=== PATIENT | female | born 1940 | race African-American/Black ===

== ENCOUNTER → 2017-05-07 | Outpatient (CLI) | payer MEDICARE, OTHER ==
[~2017-05-07] MED LIST: ALPR1TAB7 PO; AML5T PO; CHLO25TA34 PO; COLCPOW2 PO; GABA-497 PO; HYDR25TA4 PO; LANS30CA63 PO; LISI-646 PO; MECL-87 PO; METF-489 PO; MULTTAB99 PO; NORT25CA PO; POT10T PO; RIV20T PO; TEMA30CA PO
[2017-05-07 12:45] LABS: Basophils # (auto) 0 uL; DEFINITIVE VIEW TRANSMISSION; Eosinophils # (auto) 0 uL; Eosinophils % (auto) 0.2 % (0.0-7.0); Hematocrit 31.3 % (36.0-46.0); Hemoglobin 10.1 g/dL (12.2-16.2); Lymphocytes # (auto) 0.6 uL; Lymphocytes % (auto) 9.2 % (10.0-50.0); Mean Corpuscular Hemoglobin 27.1 pg (28.0-32.0); Mean Corpuscular Hgb Conc. 32.5 g/dL (32.0-36.0); Mean Corpuscular Volume 83.6 fL (80.0-100.0); Mean Platelet Volume 8.4 fL (7.4-10.4); Monocytes # (auto) 0.2 uL; Monocytes % (auto) 2.8 % (0.0-12.0); Neutrophils # (auto) 5.6 uL; Neutrophils % (auto) 87.8 % (37.0-80.0); Platelet Count (auto) 294 10^3/uL (140-450); White Blood Cell 6.4 10^3/uL (4.4-10.8)
[2017-05-07 13:06] LABS: Red Cell Distribution Width 21.2 % (11.6-16.0)
[2017-05-07 13:50] LABS: INR 0.95 (0.9-1.15); Prothrombin Time 10.3 sec (9.37-12.3)
[2017-05-07 13:59] LABS: Albumin 3.1 g/dL (3.4-5.0); BUN/Creatinine Ratio 16.3; Bilirubin, Total 0.2 mg/dL (0.2-1.0); Calcium 9.7 mg/dL (8.5-10.1); Potassium 4.6 mmol/L (3.5-5.1); Total Protein 7.1 g/dL (6.4-8.2)
[2017-05-07 15:13] LABS: Platelet Estimate Adequate
[2017-05-07 15:14] LABS: Anisocytosis Slight; Ovalocytes FEW; Stomatocytes Few
== END | disposition home or self-care (01) ==
LOC: LAB 12:00
PROVIDERS: ATTEND Internal Medicine
DX: D64.9 Anemia, unspecified (principal); C20 Malignant neoplasm of rectum; E11.9 Type 2 diabetes mellitus without complications
CPT/HCPCS: 36415; 80053; 82378; 82607; 83036; 83615; 85025; 85610

== ENCOUNTER 2017-05-30 11:55 | Emergency (ER) | payer MEDICARE, OTHER ==
[~2017-05-30] VITALS: Ht 160 cm; Wt 100.7 kg
[2017-05-30 13:01] LABS: Basophils # (auto) 0 uL; Basophils % (auto) 0.3 % (0.0-2.0); CONDITION Y; DEFINITIVE SEE PRINTOUT; Eosinophils # (auto) 0 uL; Hematocrit 34.6 % (36.0-46.0); Hemoglobin 10.9 g/dL (12.2-16.2); Lymphocytes # (auto) 0.6 uL; Lymphocytes % (auto) 8.1 % (10.0-50.0); Mean Corpuscular Hemoglobin 27.4 pg (28.0-32.0); Mean Corpuscular Hgb Conc. 31.6 g/dL (32.0-36.0); Mean Corpuscular Volume 86.7 fL (80.0-100.0); Mean Platelet Volume 8.4 fL (7.4-10.4); Monocytes # (auto) 0.3 uL; Monocytes % (auto) 4.2 % (0.0-12.0); Neutrophils % (auto) 87.4 % (37.0-80.0); Platelet Count (auto) 320 10^3/uL (140-450)
[2017-05-30 13:03] LABS: Red Cell Distribution Width 21.5 % (11.6-16.0)
[2017-05-30 13:27] LABS: Albumin 3.1 g/dL (3.4-5.0); Alkaline Phosphatase 130 U/L (45-117); Anion Gap 8 (5-15); Aspartate Aminotransferase 17 U/L (15-37); BUN/Creatinine Ratio 19.1; Bilirubin, Total 0.1 mg/dL (0.2-1.0); Blood Urea Nitrogen 27 mg/dL (7-18); Calcium 8.7 mg/dL (8.5-10.1); Carbon Dioxide 21 mmol/L (21-32); Chloride 111 mmol/L (98-107); GFR African American 46 mL/min; GFR Non-African American 38 mL/min; Glucose 87 mg/dL (74-106); Magnesium 2.5 mg/dL (1.6-2.6); Potassium 4.6 mmol/L (3.5-5.1); Sodium 140 mmol/L (136-145); Total Protein 7.6 g/dL (6.4-8.2)
[2017-05-30 13:51] LABS: Platelet Estimate Adequate
[2017-05-30 13:55] LABS: Anisocytosis Moderate
[2017-05-30 13:57] LABS: Ovalocytes FEW
[2017-05-30] MEDS ORDERED: LABETALOL HCL 5 MG/ML 4ML SYRINGE IV ONE (17:15)
[2017-05-30 17:16] LABS: Allen Test Yes; Base Excess -0.6 mmol/L (-2.0-2.0); Blood 02Sat 97.6 % (96-100); Blood COHb 0.7 % (0.5-1.5); Blood MetHb 0.3 % (0.0-1.5); HHb 2.4 % (0.0-5.0); MODE NASAL CANNULA; O2Hb 96.6 % (94.0-97.0); PCO2 39.1 mmHg (35.0-45.0); PCO2(T) 39.1 mmHg (35.0-45.0); PO2 130.6 mmHg (80.0-100.0); PO2(T) 130.6 mmHg (80.0-100.0); Sample Type Arterial; pH 7.406 (7.350-7.450)
[2017-05-30 18:36] VITALS: BP 128/79
== END 2017-05-30 19:20 | disposition home or self-care (01) ==
LOC: EDBD 11:55 → ER 11:55
DX: E11.21 Type 2 diabetes mellitus with diabetic nephropathy (principal); J70.5 Respiratory conditions due to smoke inhalation; D50.9 Iron deficiency anemia, unspecified; E46 Unspecified protein-calorie malnutrition; E66.9 Obesity, unspecified; M10.9 Gout, unspecified; I10 Essential (primary) hypertension; J45.909 Unspecified asthma, uncomplicated; Z68.39 Body mass index [BMI] 39.0-39.9, adult
CPT/HCPCS: 36415; 36600; 71020; 80053; 82805; 83735; 84484; 85025; 93005; J3490

== ENCOUNTER → 2017-10-03 | Outpatient (CLI) | payer MEDICARE, OTHER ==
[2017-10-03 12:56] LABS: Basophils # (auto) 0.1 uL; Basophils % (auto) 0.9 % (0.0-2.0); Eosinophils # (auto) 0 uL; Eosinophils % (auto) 0.5 % (0.0-7.0); Hematocrit 35.3 % (36.0-46.0); Hemoglobin 11.6 g/dL (12.2-16.2); Lymphocytes # (auto) 1.5 uL; Lymphocytes % (auto) 25.9 % (10.0-50.0); Mean Corpuscular Hemoglobin 30.1 pg (28.0-32.0); Mean Corpuscular Volume 91.2 fL (80.0-100.0); Monocytes # (auto) 0.6 uL; Neutrophils # (auto) 3.6 uL; Neutrophils % (auto) 62.7 % (37.0-80.0); Platelet Count (auto) 309 10^3/uL (140-450); Red Blood Cells 3.87 10^6/uL (4.0-5.20); Red Cell Distribution Width 16.7 % (11.8-14.3); White Blood Cell 5.7 10^3/uL (4.4-10.8)
[2017-10-03 15:12] LABS: Albumin 3.3 g/dL (3.4-5.0); BUN/Creatinine Ratio 19.6; Bilirubin, Total 0.2 mg/dL (0.2-1.0); CRP High Sensitivity 3.2 mg/dL (< 0.3); Calcium 9.4 mg/dL (8.5-10.1); Potassium 3.9 mmol/L (3.5-5.1)
[2017-10-03 15:13] LABS: Carcinoembryonic Antigen 1.53 ng/mL (<5.0 OR =)
== END | disposition home or self-care (01) ==
LOC: LAB 12:00
PROVIDERS: ATTEND Internal Medicine
DX: C20 Malignant neoplasm of rectum (principal); I10 Essential (primary) hypertension; I70.0 Atherosclerosis of aorta; M06.9 Rheumatoid arthritis, unspecified; D64.9 Anemia, unspecified; E78.00 Pure hypercholesterolemia, unspecified; Z79.899 Other long term (current) drug therapy
CPT/HCPCS: 36415; 80053; 82378; 82607; 83615; 85025; 85652; 86141

== ENCOUNTER → 2018-10-01 | Outpatient (CLI) | payer MEDICARE, OTHER ==
[~2018-10-01] VITALS: Ht 160 cm; Wt 98.0 kg
[~2018-10-01] MED LIST changes: +ADENOSINE 82 MG in GIVE UN-DILUTED 0 ML IV ONE; -GABA-497 PO; +GABA300C10 PO
[2018-10-01 09:50] VITALS: BP 114/62
== END | disposition home or self-care (01) ==
LOC: XY 08:17
PROVIDERS: ATTEND Internal Medicine Cardiovascular Disease
DX: R07.89 Other chest pain (principal)
CPT/HCPCS: 78452; 93017; A9500; J0153

== ENCOUNTER → 2018-10-07 | Outpatient (CLI) | payer MEDICARE, OTHER ==
[~2018-10-07] MED LIST changes: -ADENOSINE 82 MG in GIVE UN-DILUTED 0 ML IV ONE
[2018-10-07 15:19] LABS: Basophils # (auto) 0 uL; Basophils % (auto) 0.3 % (0.0-2.0); Eosinophils # (auto) 0 uL; Eosinophils % (auto) 0.6 % (0.0-7.0); Hematocrit 34.3 % (36.0-46.0); Lymphocytes # (auto) 1.1 uL; Lymphocytes % (auto) 24.1 % (10.0-50.0); Mean Corpuscular Hemoglobin 31.8 pg (28.0-32.0); Mean Corpuscular Hgb Conc. 32.2 g/dL (32.0-36.0); Monocytes # (auto) 0.5 uL; Monocytes % (auto) 10.2 % (0.0-12.0); Neutrophils % (auto) 64.8 % (37.0-80.0); Nucleated Red Blood Cells % 0.2 %; Platelet Count (auto) 233 10^3/uL (140-450); Red Blood Cells 3.47 10^6/uL (4.0-5.20); Red Cell Distribution Width 15.3 % (11.8-14.3); White Blood Cell 4.7 10^3/uL (4.4-10.8)
[2018-10-07 15:33] LABS: % Iron Saturation 13.7 % (15-50)
[2018-10-07 15:35] LABS: Albumin 3.1 g/dL (3.4-5.0); Calcium 9.3 mg/dL (8.5-10.1); Potassium 4.8 mmol/L (3.5-5.1)
[2018-10-07 15:38] LABS: BUN/Creatinine Ratio 13.8; Bilirubin, Total 0.3 mg/dL (0.2-1.0); Total Protein 7.6 g/dL (6.4-8.2)
== END | disposition home or self-care (01) ==
LOC: LAB 14:07
PROVIDERS: ATTEND Internal Medicine
DX: C20 Malignant neoplasm of rectum (principal); D64.9 Anemia, unspecified
CPT/HCPCS: 36415; 80053; 82607; 83540; 83550; 83615; 85025

== ENCOUNTER 2019-07-25 10:21 | Emergency (ER) | payer MEDICARE, OTHER ==
[~2019-07-25] VITALS: Ht 160 cm; Wt 90.7 kg
[~2019-07-25 10:21] MED LIST changes: +LANS30CA57 PO; -LANS30CA63 PO; +TRAZ100T2 PO
[2019-07-25 10:53] VITALS: BP 112/61
[2019-07-25] MEDS ORDERED: IPRATROPIUM BROM 0.5 MG/2.5ML INH SOL NEB ONE (12:15)
[2019-07-25] MEDS ORDERED: ALBUTEROL SULF 2.5 MG/0.5ML(0.5%) NEB SOLN NEB ONE (12:15)
[2019-07-25] MEDS ORDERED: methylPREDNISolone SOD SUCC 125 MG/2 ML VL IM ONE (12:15)
== END 2019-07-25 13:23 | disposition home or self-care (01) ==
LOC: ER 10:21
DX: J06.9 Acute upper respiratory infection, unspecified (principal); E11.9 Type 2 diabetes mellitus without complications; I10 Essential (primary) hypertension; Z90.710 Acquired absence of both cervix and uterus
CPT/HCPCS: 71046; 93005; 94640; 96372; 99283; J2930; J7611; J7644

== ENCOUNTER 2019-10-06 08:39 | Day surgery (SDC) | payer MEDICARE, OTHER ==
[2019-10-02 12:09] LABS: Urine WBC None Seen /hpf (0 - 5)
[2019-10-02 12:26] LABS: Urine Bacteria FEW /hpf (None Seen); Urine Blood Negative /uL (Negative); Urine Mucus FEW (None Seen); Urine Specific Gravity 1.016 (1.001-1.035)
[2019-10-02 12:30] LABS: Basophils # (auto) 0 uL; Basophils % (auto) 0.9 % (0.0-2.0); Eosinophils # (auto) 0 uL; Eosinophils % (auto) 0.7 % (0.0-7.0); Hematocrit 34.3 % (36.0-46.0); Hemoglobin 11.3 g/dL (12.2-16.2); Lymphocytes # (auto) 1.2 uL; Lymphocytes % (auto) 33.6 % (10.0-50.0); Mean Corpuscular Hemoglobin 31.8 pg (28.0-32.0); Mean Corpuscular Hgb Conc. 32.9 g/dL (32.0-36.0); Mean Corpuscular Volume 96.8 fL (80.0-100.0); Monocytes # (auto) 0.3 uL; Monocytes % (auto) 8.4 % (0.0-12.0); Neutrophils # (auto) 1.9 uL; Neutrophils % (auto) 56.4 % (37.0-80.0); Nucleated Red Blood Cells % 0.1 %; Platelet Count (auto) 263 10^3/uL (140-450); Red Blood Cells 3.55 10^6/uL (4.0-5.20); Red Cell Distribution Width 15.8 % (11.8-14.3); White Blood Cell 3.5 10^3/uL (4.4-10.8)
[2019-10-02 12:35] LABS: INR 0.94 (0.9-1.15); Partial Thromboplastin Time 27.1 sec (23.64-32.05)
[2019-10-02 13:05] LABS: Albumin 3.1 g/dL (3.4-5.0); BUN/Creatinine Ratio 10.2; Calcium 9.2 mg/dL (8.5-10.1); Potassium 4.1 mmol/L (3.5-5.1)
[2019-10-02 13:07] LABS: Bilirubin, Total 0.4 mg/dL (0.2-1.0)
[~2019-10-06] VITALS: Ht 160 cm; Wt 83.9 kg
[~2019-10-06 08:39] MED LIST changes: +ALBUAER3 IN; +ALEN1TAB32 PO; -ALPR1TAB7 PO; +BACL10TA PO; +CETI10CA5 PO; -CHLO25TA34 PO; -COLCPOW2 PO; +DULO60CA PO; +FOLI1TAB6 PO; -GABA300C10 PO; -LANS30CA57 PO; +METH2.5T3 PO; -MULTTAB99 PO; -NORT25CA PO; +OMEP20TA PO; +ONDA-144 PO; -POT10T PO; +SUCR1TAB PO; -TEMA30CA PO; -TRAZ100T2 PO
[2019-10-06] MEDS ORDERED: ONDANSETRON HCL 4 MG/2 ML VIAL ONE (10:26)
[2019-10-06] MEDS ORDERED: MIDAZOLAM HCL 1MG/1ML-2 ML VIAL ONE (10:26)
[2019-10-06] MEDS ORDERED: PROPOFOL 10 MG/ML 20 ML IV ONE (10:26)
[2019-10-06] MEDS ORDERED: fentaNYL CITRATE 100 MCG/2 ML VL ONE (10:26)
[2019-10-06] MEDS ORDERED: SODIUM CHLORIDE LOCK 10 ML ONE (10:26)
[2019-10-06] MEDS ORDERED: fentaNYL CITRATE 100 MCG/2 ML VL IV PRN (11:00)
[2019-10-06] MEDS ORDERED: METOCLOPRAMIDE HCL 5MG/ml INJ 2ml VIAL IV PRN (11:00)
[2019-10-06 12:09] VITALS: BP 109/56
== END 2019-10-06 12:21 | disposition home or self-care (01) ==
LOC: GI 08:39
PROVIDERS: ATTEND Internal Medicine Gastroenterology
DX: Z12.11 Encounter for screening for malignant neoplasm of colon (principal); D12.0 Benign neoplasm of cecum; D12.3 Benign neoplasm of transverse colon; D12.4 Benign neoplasm of descending colon; K52.89 Other specified noninfective gastroenteritis and colitis; K64.8 Other hemorrhoids; E11.22 Type 2 diabetes mellitus with diabetic chronic kidney disease; I12.9 Hypertensive chronic kidney disease with stage 1 through stage 4 chronic kidney disease, or unspecified chronic kidney disease; N18.3 Chronic kidney disease, stage 3 (moderate); E66.9 Obesity, unspecified; J44.9 Chronic obstructive pulmonary disease, unspecified; K21.9 Gastro-esophageal reflux disease without esophagitis; I20.9 Angina pectoris, unspecified; D64.9 Anemia, unspecified; F32.9 Major depressive disorder, single episode, unspecified; E11.40 Type 2 diabetes mellitus with diabetic neuropathy, unspecified; Z68.32 Body mass index [BMI] 32.0-32.9, adult; Z86.718 Personal history of other venous thrombosis and embolism; Z90.49 Acquired absence of other specified parts of digestive tract; Z85.048 Personal history of other malignant neoplasm of rectum, rectosigmoid junction, and anus; Z88.5 Allergy status to narcotic agent; Z88.0 Allergy status to penicillin; Z79.899 Other long term (current) drug therapy; Z79.84 Long term (current) use of oral hypoglycemic drugs
CPT/HCPCS: 36415; 43239; 45380; 80053; 81001; 82962; 85025; 85610; 85730; 88305; 93005; J2250; J2405; J2704; J3010; J7030

== ENCOUNTER → 2020-01-08 | Outpatient (CLI) | payer MEDICARE, OTHER ==
[2020-01-08 15:30] LABS: Basophils # (auto) 0 uL; Basophils % (auto) 0.4 % (0.0-2.0); Eosinophils # (auto) 0 uL; Eosinophils % (auto) 0.6 % (0.0-7.0); Hematocrit 33.7 % (36.0-46.0); Lymphocytes # (auto) 1.5 uL; Mean Corpuscular Hemoglobin 30.4 pg (28.0-32.0); Mean Corpuscular Hgb Conc. 32.7 g/dL (32.0-36.0); Monocytes # (auto) 0.3 uL; Monocytes % (auto) 7.2 % (0.0-12.0); Neutrophils % (auto) 52.8 % (37.0-80.0); Platelet Count (auto) 267 10^3/uL (140-450); Red Blood Cells 3.63 10^6/uL (4.0-5.20); Red Cell Distribution Width 14.8 % (11.8-14.3); White Blood Cell 3.8 10^3/uL (4.4-10.8)
[2020-01-08 16:08] LABS: Calcium 9.4 mg/dL (8.5-10.1); Potassium 4.1 mmol/L (3.5-5.1)
[2020-01-08 16:14] LABS: Albumin 3.1 g/dL (3.4-5.0); BUN/Creatinine Ratio 12.1; Bilirubin, Total 0.2 mg/dL (0.2-1.0)
[2020-01-08 16:18] LABS: Carcinoembryonic Antigen 1.36 ng/mL (<5.0 OR =)
== END | disposition home or self-care (01) ==
LOC: LAB 14:58
PROVIDERS: ATTEND Internal Medicine
DX: C20 Malignant neoplasm of rectum (principal); D64.9 Anemia, unspecified
CPT/HCPCS: 36415; 80053; 82378; 82607; 83615; 85025

== ENCOUNTER 2020-01-26 09:59 | Emergency (ER) | payer MEDICARE, OTHER ==
[~2020-01-26] VITALS: Ht 160 cm; Wt 83.9 kg
[2020-01-26 12:20] VITALS: BP 110/59
== END 2020-01-26 14:12 | disposition home or self-care (01) ==
LOC: ER 09:59
DX: S93.402A Sprain of unspecified ligament of left ankle, initial encounter (principal); E11.9 Type 2 diabetes mellitus without complications; I10 Essential (primary) hypertension; Z90.49 Acquired absence of other specified parts of digestive tract; Z90.710 Acquired absence of both cervix and uterus; Z88.0 Allergy status to penicillin; Z88.5 Allergy status to narcotic agent; Z79.899 Other long term (current) drug therapy; X50.1XXA Overexertion from prolonged static or awkward postures, initial encounter; Y93.89 Activity, other specified; Y92.89 Other specified places as the place of occurrence of the external cause; Y99.8 Other external cause status
CPT/HCPCS: 73610

== ENCOUNTER 2025-03-13 13:05 | Inpatient (IN) | payer MEDICARE, OTHER ==
[~2025-03-13] VITALS: Ht 160 cm; Wt 75.6 kg
[~2025-03-13 13:05] MED LIST changes: -ALEN1TAB32 PO; +ALEN70TA74 PO; +CETI-176 PO; -CETI10CA5 PO; -DULO60CA PO; +DULO60CA41 PO; +FOLI-119 PO; -FOLI1TAB6 PO; -LISI-646 PO; +LISI20TA56 PO; -MECL-87 PO; +MECL-90 PO; +METH2.5T PO; -METH2.5T3 PO
--- NOTE | 2025-03-13 13:44 | ED.PDOC ---
HPI (NEURO) HPI Comments 84 year old female presents to the ED with chief complaint of dizziness. Patient reports that she started to experience dizziness since this morning, feeling like the room is spinning. Patient relays that it has been hard to walk around due to the dizziness, but is normally able to walk. Patient denies any N/V/D, chest pain, SOB, headache, numbness, or weakness. Chief Complaint: Dizziness Time Seen by MD: 13:40 Primary Care Provider: NONE Reviewed Notes: Nurses Notes, Medications, Allergies Information Source: Patient Mode of Arrival: Wheelchair Severity: Moderate Dizziness/Weakness Severity: Unable to do activities Timing: Hours Duration: Since onset Prehospital treatment: None Onset: At rest Circumstances: Spontaneous Symptoms: Other (Dizziness) Past Medical History PAST MEDICAL HISTORY: Anemia, Anxiety, Cancer, Depression, DM, HTN Surgical History: Cholecystectomy, Hysterectomy COMMERCIAL MANAGER History: Denies all COMMERCIAL MANAGER Hx Family History Family History: Reviewed,noncontributory to illness, Unknown Social History Smoker: Non-Smoker Alcohol: Denies ETOH Use Drugs: Denies Drug Use Lives In: Home Constitutional: denies: chills, diaphoresis, fatigue, fever, malaise, sweats, weakness, others EENTM: denies: blurred vision, double vision, ear bleeding, ear discharge, ear drainage, ear pain, ear ringing, eye pain, eye redness, hearing loss, mouth pain, mouth swelling, nasal discharge, nose bleeding, nose congestion, nose pain, photophobia, tearing, throat pain, throat swelling, voice changes, others Respiratory: denies: cough, hemoptysis, orthopnea, SOB at rest, shortness of breath, SOB with excertion, stridor, wheezing, others Cardiovascular: denies: chest pain, dizzy spells, diaphoresis, Dyspnea on exertion, edema, irregular heart beat, left arm pain, lightheadedness, palpitations, PND, syncope, others Gastrointestinal: denies: abdomen distended, abdominal pain, blood streaked bowels, constipated, diarrhea, dysphagia, difficulty swallowing, hematemesis, melena, nausea, poor appetite, poor fluid intake, rectal bleeding, rectal pain, vomiting, others Genitourinary: denies: abnormal vagina bleeding, burning, dyspareunia, dysuria, flank pain, frequency, hematuria, incontinence, pain, , vagina discharge, urgency, others Neurological: reports: dizziness; denies: fainting, headache, left sided numbness, left sided weakness, numbness, paresthesia, pre-existing deficit, right sided numbness, right sided weakness, seizure, speech problems, tingling, tremors, weakness, others Musculoskeletal: denies: back pain, gout, joint pain, joint swelling, muscle pain, muscle stiffness, neck pain, others Integumetry: denies: bruises, change in color, change in hair/nails, dryness, laceration, lesions, lumps, rash, wounds, others Allergic/Immunocompromised: denies: Difficulty Healing, Frequent Infections, Hives, Itching, others Hematologic/Lymphatic: denies: anemia, blood clots, easy bleeding, easy bruising, swollen glands, others Endocrine: denies: excessive hunger, excessive sweating, excessive thirst, excessive urination, flushing, intolerance to cold, intolerance to heat, unex plained weight gain, unexplained weight loss, others Psychiatric: denies: anxiety, bipolar disorder, depression, hopeless, panic disorder, schizophrenia, sleepless, suicidal, others All Other Systems: Reviewed and Negative Physical Exam General Appearance: Moderate Distress, Normal HEENT: Normal ENT Inspection, PERRL/EOMI Neck: Full Range of Motion, Non-Tender, Normal, Normal Inspection Respiratory: Chest Non-Tender, Lungs Clear, No Accessory Muscle Use, No Respiratory Distress, Normal Breath Sounds Cardiovascular: No Edema, No JVD, No Murmur, No Gallop, Normal Peripheral Pulses, Regular Rate/Rhythm Breast Exam: Deferred Gastrointestinal: No Organomegaly, Non Tender, No Pulsatile Mass, Normal Bowel Sounds, Soft Genitalia: Deferred Pelvic: Deferred Rectal: Deferred Extremities: No calf tenderness, Normal capillary refill, Normal inspection, No rmal range of motion, Non-tender, No pedal edema Musculoskeletal : Apperance: Normal Neurologic: Alert, supervisor capacitor processing II-XII nml as Tested, No Motor Deficits, Normal Affect, Normal Mood, No Sensory Deficits Cerebellar Function: NOT DONE Reflexes: NOT DONE Skin: Dry, Normal Color, Warm Peripheral Pulses: 3+ Radial (R), 3+ Radial (L) Lymphatic: No Adenopathy EKG EKG : Pulse Rate (adult): 75 [place]: Normal Cardiac Rhythm: NSR Block: None Hypertrophy: None ST: Normal Was a procedure done? Was a procedure done?: No Differential Diagnosis (SZ) Seizure: Psychogenic Seizure, Closed Head Injury, CVA/TIA X-Ray, Labs, Meds, VS Vital Signs Date Time Temp Pulse Resp B/P (MAP) Pulse Ox O2 Delivery O2 Flow Rate FiO2 03/13/25 13:44 75 03/13/25 13:28 75 03/13/25 13:20 98.6 80 18 118/42 (67) 98 98.6 118/52 (74) Lab Test 03/13/25 14:06 03/13/25 13:20 Range/Units White Blood Count 2.9 L 4.4-10.8 10^3/uL Red Blood Count 3.32 L 4.0-5.20 10^6/uL Hemoglobin 10.1 L 12.2-16.2 g/dL Hematocrit 30.8 L 36.0-46.0 % Mean Corpuscular Volume 93.0 80.0-100.0 fL Mean Corpuscular Hemoglobin 30.5 28.0-32.0 pg Mean Corpuscular Hemoglobin Concent 32.8 32.0-36.0 g/dL Red Cell Distribution Width 17.4 H 11.8-14.3 % Platelet Count 220 140-450 10^3/uL Mean Platelet Volume 7.9 6.9-10.8 fL Neutrophils (%) (Auto) 49.2 37.0-80.0 % Lymphocytes (%) (Auto) 37.0 10.0-50.0 % Monocytes (%) (Auto) 12.1 H 0.0-12.0 % Eosinophils (%) (Auto) 1.2 0.0-7.0 % Basophils (%) (Auto) 0.5 0.0-2.0 % Neutrophils # (Auto) 1.4 L 1.6-8.6 10 ^3/uL Lymphocytes # (Auto) 1.1 0.4-5.4 10 ^3/uL Monocytes # (Auto) 0.4 0-1.3 10 ^3/uL Eosinophils # (Auto) 0 0-0.8 10 ^3/uL Basophils # (Auto) 0 0-0.2 10 ^3/uL Nucleated Red Blood Cells 0.1 % Sodium Level 146 H 136-145 mmol/L Potassium Level 3.9 3.5-5.1 mmol/L Chloride Level 108 H 98-107 mmol/L Carbon Dioxide Level 32 H 20-31 mmol/L Anion Gap 6 5-15 Blood Urea Nitrogen 14 9-23 mg/dL Creatinine 0.86 0.550-1.02 mg/dL Glomerular Filtration Rate Calc 66 >90 mL/min BUN/Creatinine Ratio 16.3 10.0-20.0 Serum Glucose 85 74-106 mg/dL Calcium Level 10.0 8.7-10.4 mg/dL Troponin I High Sensitivity 6 </=34 ng/L Urine Color Colorless Yellow Urine Clarity Clear Clear Urine pH 6.0 5.0-9.0 Urine Specific [place] 1.006 1.001-1.035 Urine Protein Negative Negative Urine Ketones Negative Negative Urine Blood Negative Negative /uL Urine Nitrite Negative Negative Urine Bilirubin Negative Negative Urine Urobilinogen Normal Negative mg/dL Urine Leukocyte Esterase Negative Negative /uL Urine RBC <1 0 - 4 /hpf Urine Microscopic WBC < 1 0-5 /HPF Urine Squamous Epithelial Cells Few <5 /hpf Urine Bacteria Few H None Seen /hpf Urine Glucose Normal Normal mg/dL POC Glucose 93 70-106 mg/dl Patient alert. Complaining of dizziness. Vitals stable. Answering questions. Can not stand without being dizzy. Possibly will need MRI. Was given meclizine. Reviewed her history. Explained to the patient. Continue monitoring. CT Head: FINDINGS: There is global brain atrophy. No intracranial hemorrhage, mass, midline shift, hydrocephalus, or evidence of acute large vessel infarct. There are mild bilateral basal ganglia calcifications. The partially-visualized paranasal sinuses are clear. There are bilateral josé luis bullosa. The bilateral mastoid air cells and middle ear spaces are clear. No cranial fracture. There is left periorbital soft tissue swelling. There is a mildly displaced fracture of the anterior margin of the left orbital floor (image 10, series 69; image 9, series 3). There is also right infraorbital soft tissue swelling, not fully imaged here. IMPRESSION: 1. No acute intracranial process. 2. Left orbital floor fracture with adjacent soft tissue edema. Images Reviewed?: Images reviewed and evaluated by me Time of 1ST Reevaluation: 14:40 Reevaluation 1ST: Unchanged Patient Education/Counseling: Diagnosis, Treatment Family Education/Counseling: No Family Present Additional Information The following tests were ordered, and results were reviewed by me: CBC, BMP, UA, Troponin, CT Head Additional Information was gathered from interviewing the following independent historians: None I reviewed and agreed with the following test results read by other providers: CT Head I discussed treatment and results with medical personnel and: Patient Comprehensive systems review obtained and negative except for what is stated in the HPI. Departure 1 Departure Time of Disposition: 13:53 Impression: Primary Impression: Autonomic disorder Additional Impression: TIA (transient ischemic attack) Disposition: ADMITTED INPATIENT Admit to: Med Surg Condition: Guarded Critical Care Note Critical Care Time?: No Stability Stability form required: No Heart Score Heart Score: Heart Score Response (Comments) Value History N/A 0 EKG N/A 0 Age N/A 0 Risk Factors N/A 0 Troponin N/A 0 Total 0 I personally scribed for ELFEGO MIMS MD (AN) on 03/13/25 at 13:44. Electronically submitted by Juan Nur ([email or web address]). I personally scribed for ELFEGO MIMS MD ([email or web address]) on 03/13/25 at 14:53. Electronically submitted by Juan Nur ([email or web address]). ELFEGO MIMS MD Mar 13, 2025 13:44
--- NOTE | 2025-03-13 13:47 | ECG ---
[facility] Test Date: 2025-03-13 Test Time: 13:28:44 Pat Name: FAUSTO BARRIGA Department: ER Room: Gender: F Warehouse Shipping Associate: RAMESH : 1940 Requested By: ELFEGO MIMS Order Number: [id number] Reading MD: Gideon Bruno Measurements Intervals [place] Rate: 75 P: -34 DC: 197 QRS: 13 QRSD: 121 T: 0 QT: 440 QTc: 492 Interpretive Statements Sinus rhythm Nonspecific intraventricular conduction delay Borderline repolarization abnormality Baseline wander in lead(s) I,III,aVL Electronically Signed On 03-13-2025 13:48:17 PDT by Gideon Bruno Please click the below link to view image of tracing.
[2025-03-13 14:04] LABS: Urine Bacteria FEW /hpf (None Seen); Urine Blood Negative /uL (Negative); Urine Clarity Clear (Clear); Urine Color Colorless (Yellow); Urine Protein, UAD Negative (Negative); Urine Specific Gravity 1.006 (1.001-1.035); Urine Squamous Epithelial Cell FEW /hpf (<5); Urine Urobilinogen Normal (Negative); Urine WBC < 1 /HPF (0-5)
--- NOTE | 2025-03-13 14:18 | DVH ---
EXAM: CT HEAD WITHOUT CONTRAST HISTORY: dizzy COMPARISON: None TECHNIQUE: Noncontrast axial CT images of the head were performed. Coronal reformatted images were ob tained. This CT exam was performed using 1 or more of the following dose reduction techniques: Automa deysi exposure control, adjustment of the mA and/or kv according to patient size, or the use of iterati ve reconstruction techniques. Radiation Dose: CTDI volume is 56.14 mGy. Dose-length product is 994.11 mGy*cm FINDINGS: There is global brain atrophy. No intracranial hemorrhage, mass, midline shift, hydrocephalus, or alejandra dence of acute large vessel infarct. There are mild bilateral basal ganglia calcifications. The parti ally-visualized paranasal sinuses are clear. There are bilateral josé luis bullosa. The bilateral mastoi d air cells and middle ear spaces are clear. No cranial fracture. There is left periorbital soft tis nidhi swelling. There is a mildly displaced fracture of the anterior margin of the left orbital floor (image 10, series 69; image 9, series 3). There is also right infraorbital soft tissue swelling, not fully imaged here. IMPRESSION: 1. No acute intracranial process. 2. Left orbital floor fracture with adjacent soft tissue edema.
[2025-03-13 14:28] LABS: Basophils # (auto) 0 10 ^3/uL (0-0.2); Basophils % (auto) 0.5 % (0.0-2.0); Eosinophils # (auto) 0 10 ^3/uL (0-0.8); Eosinophils % (auto) 1.2 % (0.0-7.0); Hematocrit 30.8 % (36.0-46.0); Hemoglobin 10.1 g/dL (12.2-16.2); Lymphocytes # (auto) 1.1 10 ^3/uL (0.4-5.4); Mean Corpuscular Hemoglobin 30.5 pg (28.0-32.0); Mean Corpuscular Hgb Conc. 32.8 g/dL (32.0-36.0); Monocytes # (auto) 0.4 10 ^3/uL (0-1.3); Monocytes % (auto) 12.1 % (0.0-12.0); Neutrophils # (auto) 1.4 10 ^3/uL (1.6-8.6); Neutrophils % (auto) 49.2 % (37.0-80.0); Nucleated Red Blood Cells % 0.1 %; Platelet Count (auto) 220 10^3/uL (140-450); Red Blood Cells 3.32 10^6/uL (4.0-5.20); Red Cell Distribution Width 17.4 % (11.8-14.3); White Blood Cell 2.9 10^3/uL (4.4-10.8)
[2025-03-13 14:31] LABS: Potassium 3.9 mmol/L (3.5-5.1)
[2025-03-13 14:32] LABS: Anion Gap 6 (5-15)
[2025-03-13 14:33] LABS: Carbon Dioxide 32 mmol/L (20-31); Chloride 108 mmol/L (98-107); Sodium 146 mmol/L (136-145)
[2025-03-13 14:37] LABS: BUN/Creatinine Ratio 16.3 (10.0-20.0); Blood Urea Nitrogen 14 mg/dL (9-23); Glucose 85 mg/dL (74-106)
[2025-03-13] MEDS ORDERED: MECLIZINE HCL 25 MG TAB PO PRN (19:00)
[2025-03-13] MEDS: SUCRALFATE 1 GM/10 ML ORAL SUSP PO ONE (19:00)
[2025-03-13] MEDS ORDERED: NITROGLYCERIN 0.4 MG SL TAB SL PRN (19:00)
[2025-03-13] MEDS ORDERED: ONDANSETRON HCL 4 MG/2 ML VIAL IV PRN (19:00)
[2025-03-13] MEDS: MECLIZINE HCL 25 MG TAB PO ONE (19:00)
[2025-03-13] MEDS: chlorproMAZINE HCL 25 MG TAB PO ONE (19:00)
[2025-03-13] MEDS: busPIRone HCL 10 MG TAB PO ONE ×2 (19:00→23:24)
[2025-03-13] MEDS: DONEPEZIL HYDROCHLORIDE 5 MG TAB PO ONE (19:00)
[2025-03-13] MEDS ORDERED: ACETAMINOPHEN 325 MG TAB PO PRN (19:00)
[2025-03-13] MEDS: amLODIPine BESYLATE 5 MG TAB PO ONE (19:00)
[2025-03-13] MEDS ORDERED: HYDROcodone-ACET 5/325MG TAB PO PRN (19:00)
[2025-03-13] MEDS ORDERED: chlorproMAZINE HCL 25 MG TAB PO PRN (19:00)
[2025-03-13 19:04] VITALS: PULSE 85; RESP 20; O2SAT 96
--- NOTE | 2025-03-13 19:12 | DVHHPRES ---
History of Present Illness Resident Creating Document: JAYLA MARTINEZ RESDIENT History of Present Illness This is an 84-year-old female with past medical history of hypertension, diabetes type 2, DVT, depression, dyslipidemia came to the hospital due to dizziness. Per patient she has chronic dizziness since 7-8 years for which uses meclizine as needed. Today morning, upon waking up from sleep she was feeling more dizzy which prompted this visit. She also reports lightheadedness, generalized weakness and mild headache. She denies fever, chest pain, shortness of breath, nausea, vomiting, or any recent motor or sensory deficits. PMHx: hypertension, diabetes type 2, DVT, depression, dyslipidemia PSHx: Colon cancer stage IV (status post colectomy), cholecystectomy, hysterectomy Family history: Not contributed Social history: Lives with family at home, denies smoking or any other drug use. Home medication: Amlodipine 5 mg, donepezil 5 mg, buspirone 5 mg, olmesartan hydrochlorothiazide 40/12.5, Xarelto 20 mg, methotrexate 2.5 mg, Mounjaro 7.5 failure, cetirizine 10 mg, alendronate 10 mg, lidocaine patch, sucralfate 1 g, meclizine 25 mg, clindamycin 25 mg, trazodone 150 mg Allergic history: Morphine and penicillin Patient seen and examined at the bedside. Patient is still complaining of dizzi ness. Review of Systems Review of Systems General: Reports dizziness HEENT: Reports headache Cardiovascular: Denies chest pain, palpitations, dyspnea on exertion, orthopnea, or claudication. Respiratory: No cough, and wheezing. Gastrointestinal: Denies nausea, vomiting, dysphagia, odynophagia, heartburn, abdominal pain, flatulence, bloating, diarrhea, constipation, change in stool, or blood in stool. Genitourinary: No dysuria, hematuria, discharge, frequency, urgency, nocturia, incontinence, and urinary retention. Endocrine: No heat or cold intolerance, polydipsia, polyuria, and polyphagia. Neurological: No dizziness, extremity weakness and numbness, tremors, gait disturbance, seizures, and memory impairment. Psychiatric: Denies depression, anxiety,or insomnia. Musculoskeletal: Denies neck pain, stiffness and swelling, back pain, muscle weakness, joint pain, stiffness, swelling, or limited range of motion. Skin: No rashes, itching, skin lesion, changes in hair, nail, skin texture and breast. Hematologic/Lymphatic: Denies easy bruising, bleeding tendencies, or lymph node enlargement. Allergies: Coded Allergies: Morphine (Unverified Allergy, Unknown, 10/02/19) Penicillins (Verified Allergy, Unknown, 10/02/19) Medications Current Medications Medications Dose Ordered Sig/Veronica Route Start Time Stop Time Status Last Admin Dose Admin Acetaminophen 650 mg Q6HP PRN PO 03/13/25 19:00 UNV Acetaminophen/ Hydrocodone Bitart 1 tab Q4HP PRN PO 03/13/25 19:00 UNV Ondansetron HCl 4 mg Q4HP PRN IV 03/13/25 19:00 UNV Enoxaparin Sodium 40 mg DAILY SC 03/14/25 10:00 UNV Nitroglycerin 0.4 mg Q5MINP PRN SL 03/13/25 19:00 UNV Morphine Sulfate 2 mg Q30M PRN IV 03/13/25 19:00 UNV Exam Vital Signs Vital Signs Date Time Temp Pulse Resp B/P (MAP) Pulse Ox O2 Delivery O2 Flow Rate FiO2 03/13/25 18:47 60 20 96 Room Air 03/13/25 18:47 98.1 107/55 (72) 98.1 Exam General Appearance: Alert, Oriented X3, Cooperative, No acute distress HEENT: Atraumatic, PERRLA, EOMI, Mucous membrane moist/pink Respiratory: Clear to auscultation, Normal air movement Cardiovascular: Regular rate, Normal S1, Normal S2, No murmurs, no chest wall tenderness Abdominal: Normal bowel sounds, Soft, No tenderness, No hepatospenomegaly, No masses Extremities: No clubbing, No cyanosis, No edema, Normal pulses, No tenderness/swelling Skin: No rashes, No breakdown, No significant lesion Neuro: Normal gait, Normal speech, Strength at 5/5 X4 ext, Normal tone, Sensation intact, Cranial nerves 3-12 NL, Reflexes 2+ Psych/Mental Status: Mental status NL, Mood NL Labs/Xrays Labs Test 03/13/25 14:06 03/13/25 13:20 Range/Units White Blood Count 2.9 L 4.4-10.8 10^3/uL Red Blood Count 3.32 L 4.0-5.20 10^6/uL Hemoglobin 10.1 L 12.2-16.2 g/dL Hematocrit 30.8 L 36.0-46.0 % Mean Corpuscular Volume 93.0 80.0-100.0 fL Mean Corpuscular Hemoglobin 30.5 28.0-32.0 pg Mean Corpuscular Hemoglobin Concent 32.8 32.0-36.0 g/dL Red Cell Distribution Width 17.4 H 11.8-14.3 % Platelet Count 220 140-450 10^3/uL Mean Platelet Volume 7.9 6.9-10.8 fL Neutrophils (%) (Auto) 49.2 37.0-80.0 % Lymphocytes (%) (Auto) 37.0 10.0-50.0 % Monocytes (%) (Auto) 12.1 H 0.0-12.0 % Eosinophils (%) (Auto) 1.2 0.0-7.0 % Basophils (%) (Auto) 0.5 0.0-2.0 % Neutrophils # (Auto) 1.4 L 1.6-8.6 10 ^3/uL Lymphocytes # (Auto) 1.1 0.4-5.4 10 ^3/uL Monocytes # (Auto) 0.4 0-1.3 10 ^3/uL Eosinophils # (Auto) 0 0-0.8 10 ^3/uL Basophils # (Auto) 0 0-0.2 10 ^3/uL Nucleated Red Blood Cells 0.1 % Sodium Level 146 H 136-145 mmol/L Potassium Level 3.9 3.5-5.1 mmol/L Chloride Level 108 H 98-107 mmol/L Carbon Dioxide Level 32 H 20-31 mmol/L Anion Gap 6 5-15 Blood Urea Nitrogen 14 9-23 mg/dL Creatinine 0.86 0.550-1.02 mg/dL Glomerular Filtration Rate Calc 66 >90 mL/min BUN/Creatinine Ratio 16.3 10.0-20.0 Serum Glucose 85 74-106 mg/dL Calcium Level 10.0 8.7-10.4 mg/dL Troponin I High Sensitivity 6 </=34 ng/L Urine Color Colorless Yellow Urine Clarity Clear Clear Urine pH 6.0 5.0-9.0 Urine Specific [place] 1.006 1.001-1.035 Urine Protein Negative Negative Urine Ketones Negative Negative Urine Blood Negative Negative /uL Urine Nitrite Negative Negative Urine Bilirubin Negative Negative Urine Urobilinogen Normal Negative mg/dL Urine Leukocyte Esterase Negative Negative /uL Urine RBC <1 0 - 4 /hpf Urine Microscopic WBC < 1 0-5 /HPF Urine Squamous Epithelial Cells Few <5 /hpf Urine Bacteria Few H None Seen /hpf Urine Glucose Normal Normal mg/dL POC Glucose 93 70-106 mg/dl Assessment/Plan Assessment/Plan Presyncope Dizziness History of hypertension Diabetes type 2 Depression DVT with a pulmonary emboli History of colon cancer status post colectomy Mild cognitive supplemented osteoporosis Insomnia Anxiety Meclizine p.r.n. His CT scan shows, No acute intracranial process,left orbital floor fracture with adjacent soft tissue edema EKGs shows sinus rhythm Meclizine p.r.n. Zofran p.r.n. Continue home meds May consider scopolamine of the patient do not improve Bicytopenia, Leukopenia, Moderate anemia Hypernatremia DIET: Diabetic diet DVT PROPHYLAXIS: Lovenox CODE STATUS: Goal of care discussed for more than 18 minutes, DNR DISPOSITION: Telemetry Patient's status and plan discussed with the patient and patient's daughter at the bedside. Case discussed with Dr. Gibbs. Plan discussed with: Patient, Daughter, Other (RN) My Orders Orders - JAYLA MARTINEZ RESCALEB Procedure Category Date Status Time Admit ADMIT 03/13/25 Transmitted 18:55 Code Status CODE 03/13/25 Transmitted 18:55 Vital Signs NOELLE 03/13/25 In Process 18:55 Review Orders With NOELLE 03/13/25 In Process Adm. 18:55 Acetaminophen Tablet PHA 03/13/25 Logged (Tylenol Tablet) 19:00 Notify Of Changes NOELLE 03/13/25 In Process From Base 18:55 Advance Directive NOELLE 03/13/25 In Process 18:55 Echo 2d Mode Cardiac US 03/13/25 Logged DOP 18:55 Patient Condition ORDERS 03/13/25 Transmitted 18:55 Allergies NOELLE 03/13/25 In Process 18:55 Hydrocodone-Acet PHA 03/13/25 Logged 5/325mg Tab (Taylor 19:00 Ondansetron Hcl PHA 03/13/25 Logged (Zofran) 19:00 Drug Screen LAB 03/13/25 Logged 18:55 Enoxaparin Sodium PHA 03/14/25 Logged (Lovenox) 10:00 Nitroglycerin PHA 03/13/25 Logged Sublingual (Ntrostat 19:00 Morphine Sulfate PHA 03/13/25 Logged Injection 19:00 Oxygen By Nasal RT 03/13/25 Transmitted Cannula 18:55 Stat Ekg For Chest NOELLE 03/13/25 In Process Pain 18:55 Notify Of Changes NOELLE 03/13/25 In Process From Base 18:55 International Marketing Manager For NOELLE 03/13/25 In Process 24 Hours 18:55 Emergency Dysrhythmia NOELLE 03/13/25 In Process Protocol 18:55 Rhythm Strips Once NOELLE 03/13/25 In Process Every Shift 18:55 Complete Blood Count LAB 03/14/25 Verified 04:00 Comprehensive LAB 03/14/25 Verified Metabolic Panel 04:00 D-Dimer LAB 03/13/25 Verified 18:57 PTPTT LAB 03/14/25 Verified 04:00 Thyroid Stimulating LAB 03/13/25 Verified Hormone 18:57 Vitamin B12 LAB 03/13/25 Verified 18:57 Vitamin D, 25-Hydroxy LAB 03/13/25 Verified 18:57 Amlodipine Tablet PHA 03/14/25 Verified (Norvasc Tablet) 10:00 Amlodipine Tablet PHA 03/13/25 Verified (Norvasc Tablet) 19:00 Donepezil Tablet PHA 03/13/25 Verified (Aricept Tablet) 22:00 Donepezil Tablet PHA 03/13/25 Verified (Aricept Tablet) 19:00 Buspirone Hcl Tablet PHA 03/13/25 Verified (Buspar Tablet) 22:00 Buspirone Hcl Tablet PHA 03/13/25 Verified (Buspar Tablet) 19:00 Meclizine Tablet PHA 03/13/25 Verified (Antivert Tablet) 19:00 Meclizine Tablet PHA 03/13/25 Verified (Antivert Tablet) 19:00 Sucralfate Susp PHA 03/13/25 Verified (Carafate Susp) 19:00 Date of Service: Mar 13, 2025 Billing Provider: ALYSON QUACH MD Common Visit Codes: [id number] INP/OBS CARE (HIGH) JAYLA MARTINEZ RESDIENT Mar 13, 2025 19:12 ALYSON QUACH MD Mar 18, 2025 02:04
[2025-03-13 21:34] LABS: Benzodiazephine Screen, Urine Neg (NEGATIVE)
[2025-03-13 21:35] LABS: Amphetamine Screen, Urine Neg (NEGATIVE); Barbiturate Scree,Urine Neg (NEGATIVE); Cannabinoid Screen, Urine Neg (NEGATIVE); Cocaine Screen, Urine Neg (NEGATIVE); Opiate Scree,Urine Pos (NEGATIVE); Phencyclidine Screen, Urine Neg (NEGATIVE)
[2025-03-13] MEDS: DONEPEZIL HYDROCHLORIDE 5 MG TAB PO SCH (22:00)
[2025-03-13 22:23] VITALS: BP 126/48; PULSE 62; PULSE 82; RESP 12; RESP 20; TEMP 98; O2SAT 100; O2SAT 99
[2025-03-13 22:30] VITALS: BP 126/48; PULSE 62; RESP 12; TEMP 98; O2SAT 100
[2025-03-14] VITALS (8 sets, daily range): BP systolic 113–132; BP diastolic 48–68; PULSE 74–92; RESP 16–20; TEMP 97.2–98.3; O2SAT 94–99
[2025-03-14] MEDS ORDERED: METH2.5T PO (00:01)
[2025-03-14] MEDS ORDERED: BUSP10TA31 PO (00:01)
[2025-03-14] MEDS ORDERED: MECL1TAB42 PO (00:01)
[2025-03-14] MEDS ORDERED: TRAZ1TAB12 PO (00:01)
[2025-03-14] MEDS ORDERED: CHLO100T12 PO (00:01)
[2025-03-14] MEDS ORDERED: ALEN70TA74 PO (00:01)
[2025-03-14] MEDS ORDERED: TIRZ7.5I SC (00:01)
[2025-03-14] MEDS ORDERED: DONETAB5 PO (00:01)
[2025-03-14] MEDS ORDERED: CETI10TA2 PO (00:01)
[2025-03-14] MEDS ORDERED: [UNRECOGNIZED DRUG - CODE] IJ (00:01)
[2025-03-14] MEDS: SUCRALFATE 1 GM/10 ML ORAL SUSP PO SCH (00:31)
[2025-03-14] MEDS: traZODone HCL 50 MG TAB PO SCH (00:32)
[2025-03-14 05:04] LABS: Basophils # (auto) 0 10 ^3/uL (0-0.2); Basophils % (auto) 0.7 % (0.0-2.0); Eosinophils # (auto) 0 10 ^3/uL (0-0.8); Eosinophils % (auto) 1.3 % (0.0-7.0); Hematocrit 31.3 % (36.0-46.0); Hemoglobin 10.5 g/dL (12.2-16.2); Lymphocytes # (auto) 1.1 10 ^3/uL (0.4-5.4); Lymphocytes % (auto) 35.8 % (10.0-50.0); Mean Corpuscular Hemoglobin 30.7 pg (28.0-32.0); Mean Corpuscular Hgb Conc. 33.6 g/dL (32.0-36.0); Mean Corpuscular Volume 91.5 fL (80.0-100.0); Monocytes # (auto) 0.4 10 ^3/uL (0-1.3); Monocytes % (auto) 12.3 % (0.0-12.0); Neutrophils # (auto) 1.6 10 ^3/uL (1.6-8.6); Neutrophils % (auto) 49.9 % (37.0-80.0); Nucleated Red Blood Cells % 0.2 %; Platelet Count (auto) 216 10^3/uL (140-450); Red Blood Cells 3.42 10^6/uL (4.0-5.20); Red Cell Distribution Width 17.3 % (11.8-14.3); White Blood Cell 3.1 10^3/uL (4.4-10.8)
[2025-03-14 05:21] LABS: INR 1.14 (0.9-1.15); Partial Thromboplastin Time 27.5 SEC (24.5-34.5); Prothrombin Time 11.9 sec (9.3-11.8)
[2025-03-14 05:33] LABS: Albumin 3.8 g/dL (3.2-4.8); Alkaline Phosphatase 87 U/L (46-116); Aspartate Aminotransferase 23 U/L (13-40); BUN/Creatinine Ratio 15.1 (10.0-20.0); Blood Urea Nitrogen 14 mg/dL (9-23); Calcium 10.3 mg/dL (8.7-10.4); Carbon Dioxide 29 mmol/L (20-31); Glucose 91 mg/dL (74-106); Total Protein 6.4 g/dL (5.7-8.2)
[2025-03-14 05:35] LABS: Alanine Aminotransferase 9 U/L (7-40); Bilirubin, Total 0.2 mg/dL (0.2-1.0)
[2025-03-14 05:40] LABS: Anion Gap 9 (5-15); Chloride 107 mmol/L (98-107); Potassium 3.7 mmol/L (3.5-5.1); Sodium 145 mmol/L (136-145)
[2025-03-14] MEDS: amLODIPine BESYLATE 5 MG TAB PO SCH (09:56)
[2025-03-14] MEDS: busPIRone HCL 10 MG TAB PO SCH (09:56)
[2025-03-14] MEDS: ENOXAPARIN SOD 40 MG/0.4 ML SYRINGE SC SCH (09:57)
--- NOTE | 2025-03-14 20:18 | DVHPN2 ---
Subjective This is an 84-year-old female with past medical history of hypertension, diabetes type 2, DVT, depression, dyslipidemia came to the hospital due to dizziness. Per patient she has chronic dizziness since 7-8 years for which uses meclizine as needed. Today morning, upon waking up from sleep she was feeling more dizzy which prompted this visit. She also reports lightheadedness, generalized weakness and mild headache. She denies fever, chest pain, shortness of breath, nausea, vomiting, or any recent motor or sensory deficits. PMHx: hypertension, diabetes type 2, DVT, depression, dyslipidemia PSHx: Colon cancer stage IV (status post colectomy), cholecystectomy, hysterectomy Family history: Not contributed Social history: Lives with family at home, denies smoking or any other drug use. Home medication: Amlodipine 5 mg, donepezil 5 mg, buspirone 5 mg, olmesartan hydrochlorothiazide 40/12.5, Xarelto 20 mg, methotrexate 2.5 mg, Mounjaro 7.5 failure, cetirizine 10 mg, alendronate 10 mg, lidocaine patch, sucralfate 1 g, meclizine 25 mg, clindamycin 25 mg, trazodone 150 mg Allergic history: Morphine and penicillin Patient seen and examined at the bedside. Reviewed: H&P Changes from previous H/P or p: No Changes General: Per HPI Objective Vitals Vital Signs Date Time Temp Pulse Resp B/P (MAP) Pulse Ox O2 Delivery O2 Flow Rate FiO2 03/14/25 17:00 97.9 75 17 131/65 (87) 99 97.9 03/14/25 08:00 Room Air* 0 21 Intake/Output Intake and Output 03/14/25 07:00 Intake Total 425 ml Balance 425 ml Intake Oral 425 ml # Voids 1 # Bowel Movements 1 Exam General Appearance: Alert, Oriented X3, Cooperative, No acute distress HEENT: Atraumatic, PERRLA, EOMI, Mucous membrane moist/pink Respiratory: Clear to auscultation, Normal air movement Cardiovascular: Regular rate, Normal S1, Normal S2, No murmurs, no chest wall tenderness Abdominal: Normal bowel sounds, Soft, No tenderness, No hepatospenomegaly, No masses Extremities: No clubbing, No cyanosis, No edema, Normal pulses, No tenderness/swelling Skin: No rashes, No breakdown, No significant lesion Neuro: Normal gait, Normal speech, Strength at 5/5 X4 ext, Normal tone, Sensation intact, Cranial nerves 3-12 NL, Reflexes 2+ Psych/Mental Status: Mental status NL, Mood NL Medications Current Medications Medications Dose Ordered Sig/Veronica Route Start Time Stop Time Status Last Admin Dose Admin Acetaminophen 650 mg Q6HP PRN PO 03/13/25 19:00 Acetaminophen/ Hydrocodone Bitart 1 tab Q4HP PRN PO 03/13/25 19:00 Enoxaparin Sodium 40 mg DAILY SC 03/14/25 10:00 03/14/25 09:57 40 MG Nitroglycerin 0.4 mg Q5MINP PRN SL 03/13/25 19:00 Morphine Sulfate 2 mg Q30M PRN IV 03/13/25 19:00 Meclizine HCl 25 mg Q8HPRN PRN PO 03/13/25 19:00 Sucralfate 1 gm BID@0600,2200 PO 03/13/25 22:00 03/14/25 06:36 1 GM Chlorpromazine HCl 25 mg Q6HP PRN PO 03/13/25 19:00 Ondansetron HCl 4 mg Q6HPRN PRN IV 03/13/25 19:00 Trazodone HCl 150 mg HS PO 03/13/25 22:00 03/14/25 00:32 150 MG Buspirone HCl 5 mg Q12H PO 03/15/25 09:00 Donepezil HCl 5 mg DAILY PO 03/15/25 10:00 Laboratory Results Laboratory Tests 03/14/25 04:43 Chemistry Test 03/14/25 04:43 Albumin 3.8 g/dL (3.2-4.8) Calcium Level 10.3 mg/dL (8.7-10.4) Total Protein 6.4 g/dL (5.7-8.2) Coagulation Test 03/14/25 04:43 Prothrombin Time 11.9 sec (9.3-11.8) H Prothrombin Time INR 1.14 (0.9-1.15) Activated Partial Thromboplast Time 27.5 SEC (24.5-34.5) LFT Test 03/14/25 04:43 Alanine Aminotransferase (ALT) 9 U/L (7-40) Alkaline Phosphatase 87 U/L (46-116) Aspartate Amino Transferase (AST) 23 U/L (13-40) Total Bilirubin 0.2 mg/dL (0.2-1.0) Urinalysis Test 03/13/25 13:20 Urine Color Colorless (Yellow) Urine Clarity Clear (Clear) Urine pH 6.0 (5.0-9.0) Urine Specific [place] 1.006 (1.001-1.035) Urine Protein Negative (Negative) Urine Ketones Negative (Negative) Urine Blood Negative /uL (Negative) Urine Nitrite Negative (Negative) Urine Bilirubin Negative (Negative) Urine Urobilinogen Normal mg/dL (Negative) Urine Leukocyte Esterase Negative /uL (Negative) Urine RBC <1 /hpf (0 - 4) Urine Microscopic WBC < 1 /HPF (0-5) Urine Squamous Epithelial Cells Few /hpf (<5) Urine Bacteria Few /hpf (None Seen) H Urine Glucose Normal mg/dL (Normal) Labs and/or images reviewed: Labs reviewed by me, Image(s) reviewed by me Assessment/Plan Assessment/Plan 03/14/2025-patient is ambulating, tolerating p.o.. She has her dizziness is improving. Wal[place]-Hallpike negative. Orthostatics negative. We will deescalate some of the antihypertensives. And see how she feels. Give some slow IV fluids overnight and order PT eval. Continue present treatment Presyncope Dizziness History of hypertension Diabetes type 2 Depression DVT with a pulmonary emboli History of colon cancer status post colectomy Mild cognitive supplemented osteoporosis Insomnia Anxiety Bicytopenia, Leukopenia, Moderate anemia Hypernatremia Meclizine p.r.n. His CT scan shows, No acute intracranial process,left orbital floor fracture with adjacent soft tissue edema Orthostatic test negative Wal[place]-Hallpike test negative EKGs shows sinus rhythm Meclizine p.r.n. Zofran p.r.n. Slow IV fluids Hold antihypertensive medications Continue home meds DIET: Diabetic diet DVT PROPHYLAXIS: Lovenox CODE STATUS: Goal of care discussed for more than 18 minutes, DNR DISPOSITION: Telemetry Plan discussed with: Patient My Orders Orders - ALYSON QUACH MD Procedure Category Date Status Time Pt Request For Service PT 03/14/25 Logged 16:47 Pt Request For Service PT 03/14/25 Logged 16:48 Buspirone Hcl Tablet PHA 03/15/25 In Process (Buspar Tablet) 09:00 Donepezil Tablet PHA 03/15/25 In Process (Aricept Tablet) 10:00 Date of Service: Mar 14, 2025 Billing Provider: ALYSON QUACH MD Common Visit Codes: [id number] INP/OBS CARE(HIGH) ALYSON QUACH MD Mar 14, 2025 20:18
--- NOTE | 2025-03-14 23:21 | DVHSR ---
APPROVED REPORT EXAM: Two-dimensional and M-mode echocardiogram with Doppler and color Doppler. Blood Pressure: 113/48 mmHg INDICATION Presyncope RISK FACTORS Height: 5'3", Weight: 166 DIMENSIONS LVDd (3.8-5.7cm)LA (2D)3.7 (1.9-4.0cm)Aortic Root3.3 (2.0-3.7cm) LVDs (2.5-4.0cm)LA (MM) (1.9-4.0cm)Aortic Cusp Exc1.1 (1.5-2.0cm) EF (%) 60.0 (55-70%)Rt. Atrium3.9 (1.9-4.0cm)Asc. Aorta cm Mitral Valve MitralMitral Stenosis E wave1.05m/sMV Mean GR.mmHg A wave1.14m/sMV Peak GR.mmHg E/A ratio0.92D MVAcm2 DECEL [id number] 1/2 Timems Aortic Valve Aortic ValveAortic Stenosis V11.35m/Batsheva Mean GR.9mmHg V22.19m/Batsheva Peak GR.19mmHg LVOT Diameter2.0 (1.8-2.4cm)Doppler AVA1.94cm2 Pulmonic Valve V21.10m/s Tricuspid Valve TR Velocity2.26m/s [id number] Other Information Technically limited study due to body habitus. Conclusion MILD LVH AND MILD LV DIASTOLIC DYSFUNCTION LV EF IS 65%AND IS NORMAL CALCIFIED AORTIC LEAFLETS PEAK GRADIENT IS 19 MM OF HG AND MEAN GRADIENT IS 9 MM OF HG AORTIC VALVE AREA IS 1.94 CM SQUARE IT IS MILD AORTIC STENOSIS NORMAL MITRAL,TRICUSPID AND PULMONIC VALVE NO EFFUSION NORMAL RV FUNCTION
[2025-03-15 01:25] VITALS: BP 127/50; PULSE 70; RESP 18; TEMP 97.6; O2SAT 97
[2025-03-15] MEDS: ONDANSETRON HCL 4 MG/2 ML VIAL IV PRN (04:50)
[2025-03-15 05:00] VITALS: BP 144/58; PULSE 89; RESP 18; TEMP 98.4; O2SAT 97
[2025-03-15] MEDS: MORPHINE SULFATE INJ 2 MG/ml SYRG IV PRN (05:00)
[2025-03-15 06:40] LABS: Basophils # (auto) 0 10 ^3/uL (0-0.2); Basophils % (auto) 0.5 % (0.0-2.0); Eosinophils # (auto) 0 10 ^3/uL (0-0.8); Eosinophils % (auto) 0.9 % (0.0-7.0); Hematocrit 29.1 % (36.0-46.0); Hemoglobin 9.7 g/dL (12.2-16.2); Lymphocytes # (auto) 0.8 10 ^3/uL (0.4-5.4); Lymphocytes % (auto) 31.5 % (10.0-50.0); Mean Corpuscular Hemoglobin 30.7 pg (28.0-32.0); Mean Corpuscular Hgb Conc. 33.4 g/dL (32.0-36.0); Mean Corpuscular Volume 91.9 fL (80.0-100.0); Monocytes # (auto) 0.3 10 ^3/uL (0-1.3); Monocytes % (auto) 13.2 % (0.0-12.0); Neutrophils # (auto) 1.4 10 ^3/uL (1.6-8.6); Neutrophils % (auto) 53.9 % (37.0-80.0); Nucleated Red Blood Cells % 0.1 %; Platelet Count (auto) 195 10^3/uL (140-450); Red Blood Cells 3.17 10^6/uL (4.0-5.20); Red Cell Distribution Width 17.2 % (11.8-14.3); White Blood Cell 2.6 10^3/uL (4.4-10.8)
[2025-03-15 07:01] LABS: Albumin 3.5 g/dL (3.2-4.8); Alkaline Phosphatase 76 U/L (46-116); Anion Gap 7 (5-15); Aspartate Aminotransferase 21 U/L (13-40); BUN/Creatinine Ratio 12.9 (10.0-20.0); Bilirubin, Total 0.4 mg/dL (0.2-1.0); Blood Urea Nitrogen 12 mg/dL (9-23); Calcium 9.9 mg/dL (8.7-10.4); Carbon Dioxide 29 mmol/L (20-31); Chloride 106 mmol/L (98-107); Glucose 81 mg/dL (74-106); Potassium 4.2 mmol/L (3.5-5.1); Sodium 142 mmol/L (136-145)
[2025-03-15 07:06] LABS: Alanine Aminotransferase < 9 U/L (7-40); Total Protein 5.7 g/dL (5.7-8.2)
[2025-03-15 08:00] VITALS: PULSE 85
[2025-03-15 08:59] VITALS: BP 131/64; PULSE 84; RESP 18; TEMP 98.3; O2SAT 98
[2025-03-15] MEDS: busPIRone HCL 10 MG TAB PO SCH (09:16)
[2025-03-15] MEDS ORDERED: DONEPEZIL HYDROCHLORIDE 5 MG TAB PO SCH ×2 (10:00→18:00)
[2025-03-15 12:59] VITALS: BP 125/57; PULSE 79; RESP 18; TEMP 98.4; O2SAT 98
[2025-03-15 13:09] VITALS: BP 113/48
--- NOTE | 2025-03-15 13:38 | DVHDSRES ---
Discharge Summary Date of Admission Resident Creating Document: JAYLA MARTINEZ RESDIENT Mar 13, 2025 at 18:55 Date of Discharge: Mar 15, 2025 Admitting Diagnosis Dizziness Labs/Diagnostic Data: Laboratory Results Test 03/15/25 05:45 03/14/25 04:43 03/13/25 19:38 03/13/25 14:06 White Blood Count 2.6 10^3/uL (4.4-10.8) Red Blood Count 3.17 10^6/uL (4.0-5.20) Hemoglobin 9.7 g/dL (12.2-16.2) Hematocrit 29.1 % (36.0-46.0) Mean Corpuscular Volume 91.9 fL (80.0-100.0) Mean Corpuscular Hemoglobin 30.7 pg (28.0-32.0) Mean Corpuscular Hemoglobin Concent 33.4 g/dL (32.0-36.0) Red Cell Distribution Width 17.2 % (11.8-14.3) Platelet Count 195 10^3/uL (140-450) Mean Platelet Volume 8.4 fL (6.9-10.8) Neutrophils (%) (Auto) 53.9 % (37.0-80.0) Lymphocytes (%) (Auto) 31.5 % (10.0-50.0) Monocytes (%) (Auto) 13.2 % (0.0-12.0) Eosinophils (%) (Auto) 0.9 % (0.0-7.0) Basophils (%) (Auto) 0.5 % (0.0-2.0) Neutrophils # (Auto) 1.4 10 ^3/uL (1.6-8.6) Lymphocytes # (Auto) 0.8 10 ^3/uL (0.4-5.4) Monocytes # (Auto) 0.3 10 ^3/uL (0-1.3) Eosinophils # (Auto) 0 10 ^3/uL (0-0.8) Basophils # (Auto) 0 10 ^3/uL (0-0.2) Nucleated Red Blood Cells 0.1 % Sodium Level 142 mmol/L (136-145) Potassium Level 4.2 mmol/L (3.5-5.1) Chloride Level 106 mmol/L (98-107) Carbon Dioxide Level 29 mmol/L (20-31) Anion Gap 7 (5-15) Blood Urea Nitrogen 12 mg/dL (9-23) Creatinine 0.93 mg/dL (0.550-1.02) Glomerular Filtration Rate Calc 60 mL/min (>90) BUN/Creatinine Ratio 12.9 (10.0-20.0) Serum Glucose 81 mg/dL (74-106) Calcium Level 9.9 mg/dL (8.7-10.4) Total Bilirubin 0.4 mg/dL (0.2-1.0) Aspartate Amino Transferase (AST) 21 U/L (13-40) Alanine Aminotransferase (ALT) < 9 U/L (7-40) Alkaline Phosphatase 76 U/L (46-116) Total Protein 5.7 g/dL (5.7-8.2) Albumin 3.5 g/dL (3.2-4.8) Prothrombin Time 11.9 sec (9.3-11.8) Prothrombin Time INR 1.14 (0.9-1.15) Activated Partial Thromboplast Time 27.5 SEC (24.5-34.5) D-Dimer, Quantitative < 0.19 mg/L FEU (0.0-0.49) Troponin I High Sensitivity 6 ng/L (</=34) Vitamin D 25-Hydroxy 66.0 ng/mL (30.0-100) Thyroid Stimulating Hormone (TSH) 0.62 uIU/mL (0.55-4.78) Test 03/13/25 13:20 Urine Color Colorless (Yellow) Urine Clarity Clear (Clear) Urine pH 6.0 (5.0-9.0) Urine Specific [place] 1.006 (1.001-1.035) Urine Protein Negative (Negative) Urine Ketones Negative (Negative) Urine Blood Negative /uL (Negative) Urine Nitrite Negative (Negative) Urine Bilirubin Negative (Negative) Urine Urobilinogen Normal mg/dL (Negative) Urine Leukocyte Esterase Negative /uL (Negative) Urine RBC <1 /hpf (0 - 4) Urine Microscopic WBC < 1 /HPF (0-5) Urine Squamous Epithelial Cells Few /hpf (<5) Urine Bacteria Few /hpf (None Seen) Urine Glucose Normal mg/dL (Normal) POC Glucose 93 mg/dl (70-106) Urine Opiates Screen Pos (NEGATIVE) Urine Fentanyl Screen Neg (NEGATIVE) Urine Barbiturates Screen Neg (NEGATIVE) Urine Phencyclidine Screen Neg (NEGATIVE) Urine Amphetamines Screen Neg (NEGATIVE) Urine Benzodiazepines Screen Neg (NEGATIVE) Urine Cocaine Screen Neg (NEGATIVE) Urine Cannabinoids Screen Neg (NEGATIVE) Other Laboratory Tests 03/15/25 05:45 Brief Hx & Hospital Course: This is an 84-year-old female with past medical history of hypertension, diabetes type 2, DVT, depression, dyslipidemia came to the hospital due to dizziness. Per patient she has chronic dizziness since 7-8 years for which uses meclizine as needed. Today morning, upon waking up from sleep she was feeling more dizzy which prompted this visit. She also reports lightheadedness, generalized weakness and mild headache. She denies fever, chest pain, shortness of breath, nausea, vomiting, or any recent motor or sensory deficits. PMHx: hypertension, diabetes type 2, DVT, depression, dyslipidemia PSHx: Colon cancer stage IV (status post colectomy), cholecystectomy, hysterectomy Family history: Not contributed Social history: Lives with family at home, denies smoking or any other drug use. Home medication: Amlodipine 5 mg, donepezil 5 mg, buspirone 5 mg, olmesartan hydrochlorothiazide 40/12.5, Xarelto 20 mg, methotrexate 2.5 mg, Mounjaro 7.5 failure, cetirizine 10 mg, alendronate 10 mg, lidocaine patch, sucralfate 1 g, meclizine 25 mg, clindamycin 25 mg, trazodone 150 mg Allergic history: Morphine and penicillin Hospital course: Patient was admitted for evaluation of dizziness and possible presyncope. Patients CT scan showed no acute intracranial abnormalities. EKG showed normal sinus rhythm with no acute ST or T-wave changes. Orthostatic vitals and Radha- Hallpike test were within normal limits. Patient was given meclizine p.r.n. and continue medicine. Physiotherapy evaluation was performed and recommended that the patient is safe to discharge home. Discharge plan discussed with the patient the patient discharged home. Discharge plan: Meclizine p.r.n. Continue home meds Follow up with the PCP within 1 week of the discharge Condition at Discharge: Stable Final Diagnosis/Problems List Dizziness due to intravascular volume depletion Possible TIA History of hypertension Diabetes type 2 Depression DVT with a pulmonary emboli History of colon cancer status post colectomy Mild cognitive supplemented osteoporosis Insomnia Anxiety Bicytopenia, Leukopenia, Moderate anemia Hypernatremia Ruled out autonomic disorder Discharge Disposition: Home Discharge Instruct/Medications Diet: Cardiac 2g Na,low cholest Activity: No Restrictions, As Tolerated Follow Up/Referral: Follow up with the PCP within 1 week of the discharge. Medications: Continue home meds Meclizine p.r.n. for dizziness Discharge Statement: "Patient was advised to return to the ER or call 911 if any headaches, dizziness, shortness of breath, chest pain, abdominal pain, bleeding, fevers, or worsening of medical condition. Patient was counseled about treatment plan, medications, possible side effects, patientverbalized understanding. All questions were answered to the best of my ability. This discharge took greater then 30 minutes in planning, reviewing documentation, counseling the patient, and discussing with other team members." ASSESSMENT ASSESSMENT Assessment Dizziness due to intravascular volume depletion Date of Service: Mar 15, 2025 Billing Provider: ALYSON QUACH MD Common Visit Codes: [id number]/OBS DISCH DAY >30min JAYLA MARTINEZ RESDIENT Mar 15, 2025 13:38 ALYSON QUACH MD Mar 18, 2025 01:02
== END 2025-03-15 13:57 | disposition home or self-care (01) | DRG 641 ==
LOC: ER 13:05 → OVERFLOW 18:55 → TELE-WESTW 18:57
PROVIDERS: ADMIT Student in an Organized Health Care Education/Training Program; ATTEND Student in an Organized Health Care Education/Training Program
DX: E86.9 Volume depletion, unspecified (principal); G45.9 Transient cerebral ischemic attack, unspecified; E87.0 Hyperosmolality and hypernatremia; M81.0 Age-related osteoporosis without current pathological fracture; G47.00 Insomnia, unspecified; D64.9 Anemia, unspecified; D72.819 Decreased white blood cell count, unspecified; E78.5 Hyperlipidemia, unspecified; E11.9 Type 2 diabetes mellitus without complications; F41.9 Anxiety disorder, unspecified; F32.A Depression, unspecified; I10 Essential (primary) hypertension; Z90.49 Acquired absence of other specified parts of digestive tract; Z90.710 Acquired absence of both cervix and uterus; Z85.038 Personal history of other malignant neoplasm of large intestine; Z88.0 Allergy status to penicillin; Z88.5 Allergy status to narcotic agent; Z79.899 Other long term (current) drug therapy; Z86.718 Personal history of other venous thrombosis and embolism; Z86.711 Personal history of pulmonary embolism
CPT/HCPCS: 36415; 70450; 80048; 80053; 80307; 81001; 82306; 82607; 82962; 84443; 84484; 85025; 85379; 85610; 85730; 93005; 93306; 97163; G0378; J2405; Q0161